=== PATIENT | female | born 1975 | race African-American/Black ===

== ENCOUNTER 2024-10-25 11:05 | Emergency (ER) | payer SELFPAY ==
[2024-10-25] MEDS ORDERED: IBUPROFEN 400 MG TAB ONE (11:37)
[2024-10-25] MEDS ORDERED: IBUPROFEN 200 MG TAB PO ONE (11:37)
--- NOTE | 2024-10-25 12:23 | RAD REPORT ---
EXAMINATION: XR Lumbar Spine 3 Views CLINICAL INDICATION: Female, 49 years old. [facility] MAIN LOWER BACK PAIN Bed Name: 12 TECHNIQUE: AP, lateral, focused lateral lumbosacral views of the lumbar spine were obtained. COMPARISON: No prior exam. FINDINGS: For purposes of this dictation, it is assumed that there are 5 lumbar type vertebral bodies. ALIGNMENT: There is normal alignment of the lumbar spine. BONES: Vertebral bodies are normal in height. No aggressive osseous lesions. Moderate facet degenerat barrett changes throughout the lumbar spine most pronounced at L4-5. Mild endplate remodeling most pronounced at L5-S1. DISCS: Disc heights are maintained. IMPRESSION: No acute lumbar spine abnormality. Mild to moderate degenerative changes as above.
--- NOTE | 2024-10-25 13:02 | EDPHYS ---
Physician Documentation [facility] Name: Lillian See Age: 49 yrs Sex: Female : 1975 Arrival Date: 10/25/2024 Time: 11:05 Bed 12 Private MD: ED Physician Han Luna HPI: 10/25 11:37 This 49 yrs old Black Female presents to ER via Ambulatory with complaints of Fall ms3 Injury. 11:37 Lillian See presents to the emergency department following a fall that occurred ms3 last night when the chair she was sitting in collapsed. She reports experiencing lower back pain that has worsened this morning. The pain is described as achy and sharp, particularly in the center of her back, exacerbating when standing. She rates the pain as a 4 or 5 out of 10. She has no history of similar back pain and mentions no medical problems. She denies saddle anesthesia, numbness, weakness, bowel or bladder incontinence or retention.. 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 - Infectious Disease History:: Denies. - Social history:: Smoking status: Patient denies any tobacco usage or history of. ROS: 11:37 Constitutional: Negative for fever, and chills. Cardiovascular: Negative for chest ms3 pain, and palpitations. Respiratory: Negative for shortness of breath, cough, wheezing, and pleuritic chest pain, Abdomen/GI: Negative for abdominal pain, nausea, vomiting, diarrhea, and constipation, 11:37 Skin: Negative for injury, rash, and discoloration, 11:37 Back: Positive for Lower back pain, Exam: 11:37 Constitutional: This is a well developed, well nourished patient who is awake, alert, ms3 and in no acute distress. Cardiovascular: Regular rate and rhythm with a normal S1 and S2. No gallops, murmurs, or rubs. Normal PMI, no JVD. No pulse deficits. Respiratory: Lungs have equal breath sounds bilaterally, clear to auscultation and percussion. No rales, rhonchi or wheezes noted. No increased work of breathing, no retractions or nasal flaring. Abdomen/GI: Soft, non-tender, with normal bowel sounds. No distension or tympany. No guarding or rebound. No evidence of tenderness throughout. Skin: Warm, dry with normal turgor. Normal color with no rashes, no lesions, and no evidence of cellulitis. 11:37 Back: pain, that is moderate, of the low back area, normal spinal alignment noted, vertebral tenderness, is not appreciated, muscle spasm, is appreciated in the low back area, Vital Signs: 11:29 BP 111 / 73; Pulse 59; Resp 17; Temp 98.5; Pulse Ox 100% ; Weight 90.72 kg; Height 5 jl7 ft. 7 in. ; Pain 4/10; 13:10 BP 125 / 69; Pulse 52; Resp 17; Pulse Ox 100% ; Pain 3/10; ll1 11:29 Body Mass Index 31.32 (90.72 kg, 170.18 cm) jl7 11:29 Pain Scale: Adult jl7 13:10 Pain Scale: Adult ll1 MDM: 11:37 Medical Screening Exam initiated ms3 11:40 Differential diagnosis: contusion, sprain, strain. ms3 15:23 Data reviewed: vital signs, nurses notes, radiologic studies, and as a result, I will ms3 discharge patient. I considered the following discharge prescriptions or medication management in the emergency department Medications were administered in the Emergency Department. See MAR. Independent interpretation of the following test(s) in the Emergency Department X-Ray: My interpretation is Lumbar x-ray images reviewed by me did not reveal fracture. Counseling: I had a detailed discussion with the patient and/or guardian regarding the historical points, exam findings, and any diagnostic results supporting the discharge/admit diagnosis, radiology results, the need for outpatient follow up, to return to the emergency department if symptoms worsen or persist or if there are any questions or concerns that arise at home. Special discussion: I discussed with the patient/guardian in detail that at this point there is no indication for admission to the hospital. It is understood, however, that if the symptoms persist or worsen the patient needs to return immediately for re-evaluation. ED course: Discussed lumbar x-ray results with patient. Patient to follow-up with primary care physician in 2 to 3 days. Patient understands and agrees with plan. All questions were answered. Return precautions discussed include worsening symptoms, or any other concerns.. 10/25 11:37 Order name: Lumbar Spine (3 Views) XRAY; Complete Time: 12:27 ms3 Administered Medications: 11:44 Drug: Ibuprofen PO 600 mg PO once Route: PO; ll1 14:23 Follow up: Response: No adverse reaction; Pain is decreased ll1 Disposition Summary: 10/25/24 13:01 Discharge Ordered Notes: Location: Home ms3 Condition: Stable ms3 Diagnosis - Fall from chair, initial encounter ms3 - Low back pain ms3 Followup: ms3 - With: Gus Kent DO - When: 2 - 3 days - Reason: Recheck today's complaints Discharge Instructions: - Discharge Summary Sheet ms3 - Acute Back Pain, Adult ms3 Forms: - Medication Reconciliation Form ms3 - Antibiotic Education ms3 - Prescription Opioid Use ms3 - Patient Portal Instructions ms3 - Leadership Thank You Letter ms3 Prescriptions: - Ibuprofen 600 mg Oral Tablet - take 1 tablet ORAL route every 6 hours As needed take with food; 30 tablet; ms3 Refills: 0, Product Selection Permitted Signatures: Dispatcher [employer] Caron Meeks RN RN jl7 Ahsan Trujillo RN RN ll1 Han Luna DO DO ms3
--- NOTE | 2024-10-25 13:02 | ER ---
Nurse's Notes [facility] Name: Lillian See Age: 49 yrs Sex: Female : 1975 Arrival Date: 10/25/2024 Time: 11:05 Bed 12 Private MD: Diagnosis: Fall from chair, initial encounter;Low back pain Presentation: 10/25 11:29 Chief complaint: Patient states: Sitting in a chair yesterday at [facility] and the 7 chair collapsed, reporting pain to the tailbone that is worse when standing. Coronavirus screen: At this time, the client does not indicate any symptoms associated with coronavirus-19. Ebola Screen: No symptoms or risks identified at this time. Initial Sepsis Screen: Does the patient meet any 2 criteria? No. Patient's initial sepsis screen is negative. Does the patient have a suspected source of infection? No. Patient's initial sepsis screen is negative. Risk Assessment: Do you want to hurt yourself or someone else? Patient reports no desire to harm self or others. Onset of symptoms was October 24, 2024. 11:29 Method Of Arrival: Ambulatory [facility] 11:29 Acuity: NATANAEL 4 jl7 Triage Assessment: 11:31 General: Appears in no apparent distress. uncomfortable, Behavior is calm, cooperative, jl7 appropriate for age. Pain: Complains of pain in back and buttocks Pain currently is 4 out of 10 on a pain scale. Neuro: Level of Consciousness is awake, alert, obeys commands, Oriented to person, place, time, situation. Cardiovascular: Patient's skin is warm and dry. Respiratory: Airway is patent Respiratory effort is even, unlabored, Respiratory pattern is regular, symmetrical. Derm: Skin is pink, warm \T\ dry. 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 - Infectious Disease History:: Denies. - Social history:: Smoking status: Patient denies any tobacco usage or history of. Screenin:44 [facility] ED Fall Risk Assessment (Adult) History of falling in the last 3 months, ll1 including since admission Yes- single mechanical fall (1 pt) Confusion or Disorientation No (0 pts) Intoxicated or Sedated No (0 pts) Impaired Gait No (0 pts) Mobility Assist Device Used No (0 pt) Altered Elimination No (0 pt) Score/Fall Risk Level 0 - 2 = Low Risk Maintained a safe environment, Hourly rounding (assess needs \T\ fall precautionary measures) done. Abuse screen: Denies threats or abuse. Nutritional screening: No deficits noted. Tuberculosis screening: No symptoms or risk factors identified. Assessment: 11:37 General: Appears in no apparent distress. Behavior is calm, cooperative, appropriate ll1 for age. Pain: Complains of pain in buttocks Quality of pain is described as aching. Musculoskeletal: Reports pain in buttocks. Injury Description: Bruise sustained to buttocks. 13:10 Reassessment: No changes from previously documented assessment. Patient and/or family ll1 updated on plan of care and expected duration. Pain level reassessed. Patient is alert, oriented x 3, equal unlabored respirations, skin warm/dry/pink. Vital Signs: 11:29 BP 111 / 73; Pulse 59; Resp 17; Temp 98.5; Pulse Ox 100% ; Weight 90.72 kg; Height 5 jl7 ft. 7 in. ; Pain 4/10; 13:10 BP 125 / 69; Pulse 52; Resp 17; Pulse Ox 100% ; Pain 3/10; ll1 11:29 Body Mass Index 31.32 (90.72 kg, 170.18 cm) jl7 11:29 Pain Scale: Adult jl7 13:10 Pain Scale: Adult ll1 ED Course: 11:08 Patient arrived in ED. mr 11:14 Han Luna DO is Attending Physician. ms3 11:31 Triage completed. jl7 11:31 Arm band placed on right wrist. jl7 11:37 Ahsan Trujillo, RN is Primary Nurse. ll1 11:45 Patient has correct armband on for positive identification. Call light in reach. ll1 Provided Education on: ER procedures and process. 11:45 No provider procedures requiring assistance completed. Patient did not have IV access ll1 during this emergency room visit. 12:01 Lumbar Spine (3 Views) XRAY In Process Unspecified. EDMS 13:01 Gus Kent DO is Referral Physician. ms3 Administered Medications: 11:44 Drug: Ibuprofen PO 600 mg PO once Route: PO; ll1 14:23 Follow up: Response: No adverse reaction; Pain is decreased ll1 Medication: 11:45 VIS not applicable for this client. ll1 Outcome: 13:01 Discharge ordered by . ms3 13:10 Patient left the ED. ll1 13:10 Discharged to home ambulatory, ll1 13:10 Condition: stable 13:10 Discharge instructions given to patient, Instructed on discharge instructions, follow up and referral plans. medication usage, Demonstrated understanding of instructions, follow-up care, medications, Prescriptions given X 1, Signatures: Dispatcher [employer] EDMS Mary Morales, [place] Reg mr Caron Collazo RN RN jl7 Ahsan Trujillo RN RN ll1 Han Luna DO DO ms3
[2024-10-25 13:16] VITALS: BP 111/73; TEMP 98.5; O2SAT 100
== END 2024-10-25 13:10 | disposition home or self-care (01) ==
LOC: ER 11:05
DX: M54.50 Low back pain, unspecified (principal); W07.XXXA Fall from chair, initial encounter
CPT/HCPCS: 72100